=== PATIENT | female | born 1990 | race African-American/Black ===

== ENCOUNTER 2016-12-04 23:38 | Emergency (ER) | payer BC ==
[2016-12-04 23:27] LABS: URINE APPEARANCE TURBID; URINE BILIRUBIN NEG (NEG); URINE BLOOD TRACE (NEG); URINE COLOR YELLOW; URINE GLUCOSE NEG (NEG); URINE KETONE NEG (NEG); URINE LEUKOCYTE ESTERASE 2+ (NEG); URINE NITRATE NEG (NEG); URINE PROTEIN TRACE (NEG); URINE SPECIFIC GRAVITY 1.033 (1.003-1.035); URINE UROBILINOGEN 0.2 MG/DL (NEG)
[2016-12-04 23:28] LABS: URINE SOURCE CLEAN CATCH
[2016-12-04 23:29] LABS: URINE BACTERIA AUWI 2+ (NEGATIVE); URINE SQUAMOUS EPITHELIAL CELL MANY /[HPF]; UWBCS1 AUWI 50-100 (0-5)
[~2016-12-04 23:38] MED LIST: AUGMENTIN PO; BACTRIM DS TABL1 TAB PO; BENZONATATE PO; IBUPROFEN PO; NO MEDICATIONS; PHENERGAN PR; ROBITUSSIN A-C S5 ML PO; SUDAFED30 M1 PO; VIBRAMYCIN100 M1 PO
[2016-12-09 19:36] LABS: CHLAMYDIA TRACH Not Detected (Not Detected); N GONOR Not Detected (Not Detected)
== END 2016-12-05 02:10 | disposition home or self-care (01) ==
LOC: CED 23:38
PROVIDERS: Emergency Medicine
DX: A59.09 Other urogenital trichomoniasis (principal); Z79.899 Other long term (current) drug therapy
CPT/HCPCS: 81003; 84703; 87491; 87591; 87808; 87905; 99284; J0696